=== PATIENT | female | born 1985 | race Two or more races ===

== ENCOUNTER 2018-06-30 12:22 | Emergency (ER) | payer OTHER ==
[~2018-06-30] VITALS: Ht 154.9 cm; Wt 95.3 kg
[~2018-06-30 12:22] MED LIST: RANI300T3 PO
[2018-06-30 13:09] VITALS: BP 123/76
[2018-06-30] MEDS ORDERED: METH4TAB2 PO (13:43)
[2018-06-30] MEDS ORDERED: HYDR-3164 PO (13:43)
--- NOTE | 2018-06-30 13:44 | PHYS DOC ---
Past Medical History Past Medical History: Hypothyroid Past Surgical History: , Tubal ligation Alcohol Use: Occasionally Drug Use: None Adult General Chief Complaint Chief Complaint: LOWER BACK PAIN OR INJURY HPI HPI Patient is a 32 year old female who presents with history of sacral lightest. Patient states she is having low mid back pain with some tingling going down the back of her legs states is sharp and feels like shocks. Patient states the symptoms started last night. Patient rates her pain a 9 out of 10. She states it hurts to lay or sit or walk. Review of Systems Review of Systems Constitutional: Denies fever or chills [] Eyes: Denies change in visual acuity, redness, or eye pain [] HENT: Denies nasal congestion or sore throat [] Respiratory: Denies cough or shortness of breath [] Cardiovascular: No additional information not addressed in HPI [] GI: Denies abdominal pain, nausea, vomiting, bloody stools or diarrhea [] : Denies dysuria or hematuria [] Musculoskeletal: low mid back pain or joint pain [] Integument: Denies rash or skin lesions [] Neurologic: Denies headache, focal weakness or sensory changes [] Endocrine: Denies polyuria or polydipsia [] All other systems were reviewed and found to be within normal limits, except as documented in this note. Allergies Allergies Allergies Coded Allergies Type Severity Reaction Last Updated Verified iodine Allergy Intermediate Hives 06/08/13 Yes Physical Exam Physical Exam Constitutional: Well developed, well nourished, no acute distress, non-toxic appearance. [] HENT: Normocephalic, atraumatic, bilateral external ears normal, oropharynx moist, no oral exudates, nose normal. [] Eyes: PERRLA, EOMI, conjunctiva normal, no discharge. [] Neck: Normal range of motion, no tenderness, supple, no stridor. [] Cardiovascular:Heart rate regular rhythm, no murmur [] Lungs & Thorax: Bilateral breath sounds clear to auscultation [] Abdomen: Bowel sounds normal, soft, no tenderness, no masses, no pulsatile masses. [] Skin: Warm, dry, no erythema, no rash. [] Back: Low mid tenderness, no CVA tenderness. [] Extremities: No tenderness, no cyanosis, no clubbing, ROM intact, no edema. [] Neurologic: Alert and oriented X 3, normal motor function, normal sensory function, no focal deficits noted. [] Psychologic: Affect normal, judgement normal, mood normal. [] Current Patient Data Vital Signs Vital Signs Date Time Temp Pulse Resp B/P (MAP) Pulse Ox O2 Delivery O2 Flow Rate FiO2 06/30/18 13:09 98.4 84 14 123/76 (92) 96 Room Air 98.4 EKG EKG [] Radiology/Procedures Radiology/Procedures [] Course & Med Decision Making Course & Med Decision Making Patient is a 32 year old female who presents with history of sacral lightest. Patient states she is having low mid back pain with some tingling going down the back of her legs states is sharp and feels like shocks. Patient states the symptoms started last night. Patient rates her pain a 9 out of 10. She states it hurts to lay or sit or walk. Tenderness to palpation along the mid lower back. Patient states this feels exactly like her sacral lightest. Alert and oriented. Mucus membranes moist. Lungs are clear to auscultation lobes. No extremity edema. Patient denies loss of bowel or bladder. Patient is ambulatory and drove herself to the hospital. Patient will be given a Medrol Dosepak and pain medication. Patient is to follow -up with her primary care provider soon as possible. Dragon Disclaimer Dragon Disclaimer This electronic medical record was generated, in whole or in part, using a voice recognition dictation system. Departure Departure Impression: Primary Impression: Back pain Disposition: HOME, SELF-CARE Condition: STABLE Referrals: RUPERTO CHIANG MD (PCP) Patient Instructions: Back Pain, Adult, Sciatica Additional Instructions: Call your Primary care provider. Take Medications as prescribed. Scripts Hydrocodone/Apap 5-325 (NORCO 5-325 TABLET) 1 Each Tablet 1 TAB PO PRN Q6HRS PRN for PAIN, #10 TAB 0 Refills Prov: CHANTELL AGUERO COMMISSARY CLERK 06/30/18 Methylprednisolone (MEDROL) 4 Mg Tab.ds.pk 1 PKG PO UD, #1 PKG Prov: CHANTELL AGUERO COMMISSARY CLERK 06/30/18 Problem Qualifiers Primary Impression: Back pain Back pain location: back pain in unspecified location Chronicity: chronic Back pain laterality: midline Qualified Codes: M54.9 - Dorsalgia, unspecified ; G89.29 - Other chronic pain CHANTELL AGUERO APRN Jun 30, 2018 13:44
== END 2018-06-30 13:49 | disposition home or self-care (01) ==
LOC: ER 12:22
DX: M54.6 Pain in thoracic spine (principal); M54.5 Low back pain; G89.29 Other chronic pain; E03.9 Hypothyroidism, unspecified; Z98.890 Other specified postprocedural states; Z98.51 Tubal ligation status; Z91.041 Radiographic dye allergy status
CPT/HCPCS: 99283

== ENCOUNTER → 2019-09-08 | Outpatient (CLI) | payer BC ==
[~2019-09-08] MED LIST changes: +HYDR-3164 PO; +METH4TAB2 PO
--- NOTE | 2019-09-08 08:09 | RAD ---
THYROID ULTRASOUND History: Thyroiditis Comparison: None. Findings: Multiple sonographic images of the thyroid gland are submitted. Right lobe measured 5.6 x 1.7 x 1.7 cm. Left lobe measured 5 x 1.8 x 1.4 cm. Isthmus measured 0.5 cm AP. There is a small 0.4 x 0.4 x 0.4 cm hypoechoic nodule of the inferior left thyroid gland, minimal internal vascularity on color Doppler imaging. No hyperemia is demonstrated of the thyroid parenchyma. Thyroid parenchyma is somewhat heterogeneous bilaterally. Impression: 1. There is thyromegaly, also somewhat heterogeneous thyroid parenchyma as may be seen with thyroiditis although not associated with significant hyperemia. 2. There is a small inferior left thyroid nodule up to 0.4 cm. Electronically signed by: Akash Lott MD (09/08/2019 8:06 AM) [id number]
== END | disposition home or self-care (01) ==
LOC: US 07:15
PROVIDERS: ATTEND Family Medicine
DX: E04.1 Nontoxic single thyroid nodule (principal)
CPT/HCPCS: 76536

== ENCOUNTER 2021-01-08 16:10 | Emergency (ER) | payer BC ==
[~2021-01-08] VITALS: Ht 154.9 cm; Wt 93.6 kg
[2021-01-08] MEDS ORDERED: ASPIRIN CHEWABLE 81 MG TABLET. PO ONE (16:30)
--- NOTE | 2021-01-08 16:41 | PHYS DOC ---
Past Medical History Past Medical History: Hypothyroid Additional Past Medical Histor: Graves disease (CHANTELL AGUERO SENIOR IT SECURITY ANALYST) Past Surgical History: , Tubal ligation (CHANTELL AGUERO SENIOR IT SECURITY ANALYST) Smoking Status: Never Smoker Alcohol Use: Occasionally Drug Use: None (CHANTELL AGUERO APRN) General Adult EDM: Chief Complaint: CHEST PAIN HPI: HPI: Patient is a 35 year old female who presents with 1 week of left chest pressure with bilateral finger tip tingling that is constant. States she went to urgent care who stated she needed to go to the ED for further work up. Denies nausea, vomiting, diarrhea, fever, soa, cough, trauma, headache, dizziness, blurred vision, focal weakness, syncope, back pain, neck pain, stress, anxiety, drug use. Denies smoking or any hormone use. Denies any recent surgery or travel. Rates her discomfort at a 7 out of 10. Is currently on atenolol and Graves' disease medication. She has had a tubal ligation and a . (CHANTELL AGUERO SENIOR IT SECURITY ANALYST) Review of Systems: Review of Systems: Constitutional: Denies fever or chills. [] Eyes: Denies change in visual acuity. [] HENT: Denies nasal congestion or sore throat. [] Respiratory: Denies cough or shortness of breath. [] Cardiovascular: + chest pain or denies edema. [] GI: Denies abdominal pain, nausea, vomiting, bloody stools or diarrhea. [] : Denies dysuria. [] Musculoskeletal: Denies back pain or joint pain. [] Integument: Denies rash. [] Neurologic: Denies headache, focal weakness or+ bilateral finger tip tingling sensory changes. [] Endocrine: Denies polyuria or polydipsia. [] Lymphatic: Denies swollen glands. [] Psychiatric: Denies depression or anxiety. [] (CHANTELL AGUERO SENIOR IT SECURITY ANALYST) Heart Score: C/O Chest Pain: Yes HEART Score for Chest Pain: HEART Score for Chest Pain Response (Comments) Value History Slighlty/Non-Suspicious 0 ECG Normal 0 Age < 45 0 Risk Factors 1 or 2 Risk Factors 1 Troponin < Normal Limit 0 Total 1 Risk Factors: Risk Factors: DM, Current or recent (<one month) smoker, HTN, HLP, family history of CAD, obesity. Risk Scores: Score 0 - 3: 2.5% MACE over next 6 weeks - Discharge Home Score 4 - 6: 20.3% MACE over next 6 weeks - Admit for Clinical Observation Score 7 - 10: 72.7% MACE over next 6 weeks - Early Invasive Strategies ([facility] SECURITY ANALYST) Current Medications: Current Medications Medications (Trade) Dose Ordered Sig/Rj Start Time Stop Time Status Last Admin Dose Admin Aspirin (Aspirin Chewable) 324 mg 1X ONCE 01/08/21 16:30 01/08/21 16:31 DC ([facility] SECURITY ANALY[facility]) Allergies: Allergies: Allergies Coded Allergies Type Severity Reaction Last Updated Verified Iodinated Contrast Media Allergy Intermediate hives 01/08/21 Yes ([facility] SECURITY ANALYST) Physical Exam: PE: Constitutional: Well developed, well nourished, no acute distress, non-toxic appearance. [] HENT: Normocephalic, atraumatic, bilateral external ears normal, oropharynx moist, no oral exudates, nose normal. [] Eyes: PERRLA, EOMI, conjunctiva normal, no discharge. [] Neck: Normal range of motion, no tenderness, supple, no stridor. [] Cardiovascular:Heart rate regular rhythm, no murmur [] Lungs & Thorax: Bilateral breath sounds clear to auscultation [] Abdomen: Bowel sounds normal, soft, no tenderness, no masses, no pulsatile masses. [] Skin: Warm, dry, no erythema, no rash. [] Back: No tenderness, no CVA tenderness. [] Extremities: No tenderness, no cyanosis, no clubbing, ROM intact, no edema. [] Neurologic: Alert and oriented X 3, normal motor function, normal sensory function, no focal deficits noted. [] Psychologic: Affect normal, judgement normal, mood normal. [] Normal Physical Exam ([facility] SECURITY ANALY[facility]) Current Patient Data: Vital Signs: Vital Signs Date Time Temp Pulse Resp B/P (MAP) Pulse Ox O2 Delivery O2 Flow Rate FiO2 01/08/21 16:26 98.7 84 18 116/61 (79) 98 Room Air 98.7 ([facility] EKG: EK and read by Dr Thompson as Sinus Rhythm and no STEMI [address] Guzmán is sinus rhythm and no STEMI (CHANTELL AGUERO APRN) Radiology/Procedures: Radiology/Procedures: [] Impression: [facility] [address] [place] [address] IMAGING REPORT Signed PATIENT: ERICA QUICK ACCOUNT: [id number] : 1985 LOCATION: ER AGE: 35 SEX: F EXAM STATUS: REG ER ORD. PHYSICIAN: CHANTELL AGUERO APRN REASON: chest pain PROCEDURE: PORTABLE CHEST 1V Study: XR CHEST 1V Indication: Chest pain. Comparison: 08/09/2014 Findings: Apparent mild prominence of the cardiomediastinal silhouette is favored artifactual from AP technique. Unremarkable fox. No focal airspace infiltrate, pleural effusion or pneumothorax. Impression: No acute radiographic abnormality of the chest. Electronically signed by: MIGUEL TREJO MD (01/08/2021 6:13 PM) [facility] DICTATED and SIGNED BY: MIGUEL TREJO MD DATE: 01/08/21 [id number] (CHANTELL AGUERO APRN) Course & Med Decision Making: Course & Med Decision Making Pertinent Labs and Imaging studies reviewed. (See chart for details) See HPI. Alert and oriented x4. Ambulatory steady gait. Speaks in full clear sentences. 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 No extremity swelling. No calf tenderness. Denies palpitations. Skin pink warm and dry. Cap refill less than 2 seconds. Clear to auscultation all lobes. Patient is given aspirin in the ED. Nothing makes her chest pain worse or better. Pain is not reproducible. No unilateral edema. No extremity edema. Blood work unremarkable. Chest x-ray shows no acute findings. EKG shows no acute findings. D-dimer negative. PERC negative. Heart score is a 1. Troponin negative. Patient does have a appointment with her primary care doctor on January 18 coming up. Patient is stable and in no distress. [] (CHANTELL AGUERO APRN) Dragon Disclaimer: Dragon Disclaimer: This electronic medical record was generated, in whole or in part, using a voice recognition dictation system. (CHANTELL AGUERO APRN) Departure Departure Impression: Primary Impression: Chest pain Qualified Codes: R07.9 - Chest pain, unspecified Disposition: HOME / SELF CARE / HOMELESS Condition: STABLE Referrals: RUPERTO CHIANG MD (PCP) Patient Instructions: Chest Pain (Nonspecific) Additional Instructions: Follow up with primary care provider. Drink plenty of fluids. If your pain worsens, numbness or weakness to one whole side of your body, severe shortness of breath return to the ED. Attending Signature Attending Signature I have reviewed the PA/CUT OFF SAW OPERATOR METAL's note and plan of care. I was available for consultation as needed during the patient's visit in the emergency department. I agree with the clinical impression, plan, and disposition. (RUPERTO THOMPSON DO) CHANTELL AGUERO APRN Jan 08, 2021 16:41 RUPERTO THOMPSON DO Jan 11, 2021 22:39
[2021-01-08 17:37] LABS: BASO % 1 % (0-3); EOS # 0.1 x10^3/uL (0.0-0.7); EOS % 2 % (0-3); HEMATOCRIT 38.7 % (36.0-47.0); HEMOGLOBIN 13.2 g/dL (12.0-15.5); LYMPH # 2.1 x10^3/uL (1.0-4.8); LYMPH % 30 % (24-48); MEAN CORPUSCULAR HEMOGLOBIN 28 pg (25-35); MEAN CORPUSCULAR HGB CONC 34 g/dL (31-37); MEAN CORPUSCULAR VOLUME 81 fL (79-100); MONO # 0.7 x10^3/uL (0.0-1.1); MONO % 9 % (0-9); NEUT # 4.3 x10^3/uL (1.8-7.7); NEUT % 59 % (31-73); PLATELET COUNT 378 x10^3/uL (140-400); RED BLOOD COUNT 4.76 x10^6/uL (3.50-5.40); RED CELL DISTRIBUTION WIDTH 14.2 % (11.5-14.5); WHITE BLOOD COUNT 7.2 x10^3/uL (4.0-11.0)
[2021-01-08 17:39] LABS: BILIRUBIN,URINE NEGATIVE (NEG); CLARITY,URINE CLEAR; COLOR,URINE YELLOW; NITRITE,URINE NEGATIVE (NEG); PROTEIN,URINE NEGATIVE (NEG-TRACE); UROBILINOGEN,URINE 0.2 mg/dL (0.2 mg/dL)
[2021-01-08 17:45] LABS: BARBITURATES NEG (NEG); BENZODIAZEPINES NEG (NEG); CANNABINOIDS NEG (NEG); COCAINE NEG (NEG); METHADONE NEG (NEG); OPIATES NEG (NEG); PHENCYCLIDINE NEG (NEG)
[2021-01-08 17:46] LABS: AMPHETAMINE/METHAMPHETAMINE NEG (NEG)
[2021-01-08 17:48] LABS: CALCIUM 9.3 mg/dL (8.5-10.1); CREATININE 0.5 mg/dL (0.6-1.0); GFR 139.6; POTASSIUM 3.8 mmol/L (3.5-5.1)
[2021-01-08 17:48] LABS: BACTERIA,URINE MANY /HPF (0-FEW)
[2021-01-08 17:55] LABS: RBC,URINE RARE /HPF (0-2); WBC,URINE 0 /HPF (0-4)
[2021-01-08 17:57] LABS: ALBUMIN 3.5 g/dL (3.4-5.0); ALBUMIN/GLOBULIN RATIO 0.9 (1.0-1.7); MAGNESIUM 1.8 mg/dL (1.8-2.4); TOTAL BILIRUBIN 0.1 mg/dL (0.2-1.0); TOTAL PROTEIN 7.6 g/dL (6.4-8.2)
--- NOTE | 2021-01-08 18:16 | RAD ---
Study: XR CHEST 1V Indication: Chest pain. Comparison: 08/09/2014 Findings: Apparent mild prominence of the cardiomediastinal silhouette is favored artifactual from AP technique . Unremarkable fox. No focal airspace infiltrate, pleural effusion or pneumothorax. Impression: No acute radiographic abnormality of the chest. Electronically signed by: MIGUEL TREJO MD (01/08/2021 6:13 PM) [facility]
--- NOTE | 2021-01-08 18:33 | EKG ---
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
--- NOTE | 2021-01-08 18:34 | EKG ---
[facility] [address] [place] [address] Test Date: 2021-01-08 Test Time: 16:21:57 Pat Name: ERICA QUICK Department: Room: Gender: F Contract Administration Coordinator: : 1985 Requested By: CHANTELL AGUERO Order Number: [id number] Reading MD: Measurements Intervals [place] Rate: 74 P: 45 IN: 144 QRS: 60 QRSD: 86 T: 33 QT: 380 QTc: 427 Interpretive Statements SINUS RHYTHM NORMAL ECG RI6.02 No previous ECG available for comparison
[2021-01-08 18:49] VITALS: BP 112/57
== END 2021-01-08 19:04 | disposition home or self-care (01) ==
LOC: ER 16:10
DX: R07.89 Other chest pain (principal); E03.9 Hypothyroidism, unspecified; Z91.041 Radiographic dye allergy status
CPT/HCPCS: 36415; 71045; 80053; 80307; 81001; 81025; 83690; 83735; 83880; 84484; 85025; 85379; 87086; 93005; 99285-25